=== PATIENT | male | born 1980 | race Caucasian/White ===

== ENCOUNTER 2022-02-14 11:42 | Outpatient (CLI) | payer OTHER ==
--- NOTE | 2022-02-14 13:48 | XRay Report ---
CHEST 2 VIEWS INDICATION: TO RULE OUT ACTIVE TB INFECTION. COMPARISON: none FINDINGS: Support devices: None. Heart: Within normal limits. Lungs/pleura: No acute air space or interstitial disease. No pleural abnormality or pneumothorax. Additional findings: None. IMPRESSION: No acute findings. No findings to suggest primary or reactive tuberculosis. Signer Name: Ham Espinoza Jr, MD Signed: 02/14/2022 1:43 PM Workstation Name: [id number]
== END 2022-02-14 11:43 | disposition home or self-care (01) ==
LOC: XRAY 11:42
PROVIDERS: ATTEND Psychiatry & Neurology Psychiatry
DX: A15.9 Respiratory tuberculosis unspecified (principal)
CPT/HCPCS: 71046